=== PATIENT | male | born 1970 | race Caucasian/White ===

== ENCOUNTER 2016-09-29 22:20 | Emergency (ER) | payer MEDICAID ==
[~2016-09-29] VITALS: Ht 172.7 cm; Wt 92.0 kg
[2016-09-30] MEDS ORDERED: HYDROCODONE/ACETAMINOPHEN 10/325MG TABLET PO ONE (00:15)
[2016-09-30 01:01] VITALS: BP 152/81
== END 2016-09-30 02:45 | disposition home or self-care (01) ==
LOC: ER 09-30 00:29
DX: S42.202A Unspecified fracture of upper end of left humerus, initial encounter for closed fracture (principal); R04.0 Epistaxis; W01.0XXA Fall on same level from slipping, tripping and stumbling without subsequent striking against object, initial encounter; Y93.89 Activity, other specified; Y92.098 Other place in other non-institutional residence as the place of occurrence of the external cause
CPT/HCPCS: 29105; 73030; 99284; Z7610

== ENCOUNTER 2016-10-18 20:52 | Emergency (ER) | payer MEDICAID ==
[~2016-10-18] VITALS: Ht 175.3 cm; Wt 87.0 kg
[2016-10-18] MEDS ORDERED: SODIUM CHLORIDE 0.9% 1,000 ML IV ONE (23:15)
[2016-10-18] MEDS ORDERED: MORPHINE SULFATE 4 MG/ML CPJ (NOT FOR IM USE) IV ONE (23:15)
[2016-10-18] MEDS ORDERED: KETOROLAC 30MG/ML VIAL IV ONE (23:15)
[2016-10-18] MEDS ORDERED: ONDANSETRON HCL 4MG/2ML VIAL IV ONE (23:15)
[2016-10-18] MEDS ORDERED: MORPHINE SULFATE 2 MG/ML CPJ (NOT FOR IM USE) IV SCH (23:45)
[2016-10-18 23:58] LABS: BASOPHILS % 0.3 % (0.0-2.0); EOSINOPHILS % 0.1 % (0.0-5.0); HEMATOCRIT. 38.5 % (42.0-52.0); HEMOGLOBIN. 13.5 g/dL (14.0-18.0); LYMPHOCYTES % 10.6 % (20.0-50.0); MEAN CORPUSCULAR HEMOGLOBIN 30.3 pg (28.0-32.0); MEAN CORPUSCULAR VOLUME 86.2 fL (80.0-94.0); MONOCYTES % 3.1 % (2.0-8.0); NEUTROPHILS % 85.9 % (40.0-76.0); PLATELET 296 x1000/uL (130-400); RED BLOOD CELL COUNT 4.47 mill/uL (4.7-6.1); RED CELL DISTRIBUTION WIDTH 13.2 % (11.6-14.6)
[2016-10-18 23:59] LABS: CHLORIDE 103 mEq/L (98-107)
[2016-10-19 00:08] LABS: CARBON DIOXIDE 26 mEq/L (21-32)
[2016-10-19 01:15] LABS: CLARITY URINE CLEAR (CLEAR); COLOR URINE YELLOW (YELLOW); GLUCOSE URINE NEGATIVE (NEGATIVE); KETONES URINE NEGATIVE (NEGATIVE); LEUKOCYTE ESTERASE URINE NEGATIVE (NEGATIVE); NITRITE URINE NEGATIVE (NEGATIVE); OCCULT BLOOD URINE 1+ (NEGATIVE); PROTEIN URINE NEGATIVE (NEGATIVE); SPECIFIC GRAVITY URINE 1.014 (1.005-1.030); UROBILINOGEN URINE 0.2 E.U./dL (0.2-1.0)
[2016-10-19] MEDS ORDERED: TAMSULOSIN HCL 0.4MG SR CAPSULE PO SCH (01:15)
[2016-10-19 01:30] VITALS: BP 139/83
== END 2016-10-19 01:44 | disposition home or self-care (01) ==
LOC: ER 20:59
DX: N20.0 Calculus of kidney (principal)
CPT/HCPCS: 36415; 74176; 80053; 81001; 83690; 85025; 96361; 96374; 96375; 99285; J1885; J2405; J7030; Z7610; J2270